=== PATIENT | female | born 1950 | race Caucasian/White ===

== ENCOUNTER 2018-04-03 01:17 | Emergency (ER) | payer MEDICARE ==
[2018-04-03] MEDS ORDERED: NEOMYCIN-BACITRACIN-POLYMYXIN 0.9 GM UD TOP ONE (01:20)
[2018-04-03] MEDS ORDERED: POVIDONE IODINE 10 % 15 ML UD TOP ONE (01:20)
[2018-04-03] MEDS ORDERED: LIDOCAINE 1% 10 ML VIAL INJ ONE (01:20)
[2018-04-03] MEDS ORDERED: CHLORHEXIDINE GLUCONATE 4 % 15 ML UD TOP ONE (01:21)
[2018-04-03] MEDS ORDERED: TETANUS,DIPHTHERIA,PERTUSSIS 1 EA SYG IM ONE (01:37)
--- NOTE | 2018-04-03 01:40 | ED.PDOC ---
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 NO LOC BUT NOW SUSTAINS A LAC TO THE FOREHEAD. THE LAC MEASURES 7 CM. Timing/Duration: just prior to arrival Severity: moderate Location: face Improving Factors: nothing Worsening Factors: nothing Associated Symptoms: denies symptoms Allergies/Adverse Reactions: Allergies Sulfa Antibiotics Allergy (Verified 04/03/18 01:34) Unknown Review of Systems - Review of Systems Constitutional: States: no symptoms reported EENTM: States: no symptoms reported Respiratory: States: no symptoms reported Cardiology: States: no symptoms reported Gastrointestinal/Abdominal: States: no symptoms reported Musculoskeletal: States: no symptoms reported Skin: States: other - LACERATION Neurological: States: tremors, other - SANJUANITA'S CHOREA Endocrine: States: no symptoms reported Hematologic/Lymphatic: States: no symptoms reported Past Medical History (General) - Patient Medical History Other Surgeries:: SANJUANITA'S CHOREA Family Medical History - Family History Mother Family History: Unknown Living Status: Physical Exam - Physical Exam General Appearance: Alert, Well Developed, Well Groomed, Well Hydrated, Well Nourished Eyes, Ears, Nose, Throat Exam: PERRL/EOMI, normal ENT inspection, TMs normal, pharynx normal Neck: non-tender Cardiovascular/Chest: normal peripheral pulses, regular rate, rhythm, no edema, no gallop Respiratory: chest non-tender, lungs clear, normal breath sounds, no respiratory distress, no accessory muscle use Gastrointestinal/Abdominal: normal bowel sounds, non tender, soft, no organomegaly Back Exam: normal inspection Neurologic: oriented x 3 Skin Exam: other - 7 CM LAC TO THE FORHEAD Progress - Progress Progress: 04/03/18 02:44 ct of the head and ct of the cervical spine: THERE WAS ARTIFACT AND MOVEMENT NOTED. PRELIMINARY REPORT NO OBVIOUS FRACTURE OF BLEED. Procedures - Laceration/Wound Repair Face Wound Length (cm): 7 Wound's Depth, Shape: into muscle, linear Wound Explored: no foreign body removed Irrigated w/ Saline (cc's): 100 Betadine Prep?: Yes Anesthesia: 1% Lidocaine Volume Anesthetic (cc's): 7 Wound Debrided: minimal Wound Repaired With: sutures Suture Size/Type: 5:0 Number of Sutures: 7 Layer Closure?: Yes Deep Layer Suture Size/Type: 4:0, vicryl Number Deep Layer Sutures: 3 Sterile Dressing Applied?: Yes Departure - Departure Clinical Impression: Closed head injury Qualifiers: Encounter type: initial encounter Qualified Code(s): S09.90XA - Unspecified injury of head, initial encounter Repetitive strain injury of cervical spine Qualifiers: Encounter type: initial encounter Qualified Code(s): S16.1XXA - Strain of muscle, fascia and tendon at neck level, initial encounter Facial laceration Qualifiers: Encounter type: initial encounter Qualified Code(s): S01.81XA - Laceration without foreign body of other part of head, initial encounter Time of Disposition: 02:47 Disposition: Discharge to Home or Self Care Condition: Good Departure Forms: ED Discharge - Pt. Copy, Patient Portal Self Enrollment Instructions: DI for Laceration Repair, How to Care for a Laceration After Repair Additional Instructions: SUTURE REMOVAL 7 DAYS
[2018-04-03 01:45] VITALS: TEMP 98
--- NOTE | 2018-04-03 02:42 | CT ---
CT head without contrast on 04/03/2018 CLINICAL INDICATION: Head injury, pain, history of Bartow's disease TECHNIQUE: Multiple axial images are obtained throughout the head without the administration of contrast. This exam was performed according to our departmental dose-optimization program, which includes automated exposure control, adjustment of the mA and/or kV according to patient size and/or use of iterative reconstruction technique. Total DLP is 859.97 mGy*cm. COMPARISON: None FINDINGS: Motion limits the examination. The patient is status post left frontal temporal craniotomy. There is generalized cerebral atrophy. Ventriculomegaly appears enlarged even for degree of atrophy suggesting hydrocephalus. Correlation with any old imaging would be useful. No definite CT evidence of acute infarct is noted. No hemorrhage is noted. There are no abnormal extra-axial fluid collections. There is no mass, mass effect or midline shift. No acute bony abnormality is noted. IMPRESSION: 1. Motion significantly limits the examination. 2. Atrophy with ventriculomegaly that appears greater than expected for the degree of atrophy suggesting hydrocephalus. If there is clinical concern for normal pressure hydrocephalus consider follow-up nuclear medicine cisternogram. Correlation with any old imaging would be useful. Electronically signed by: Michael Hallman 04/03/2018 2:39 AM [employer]
--- NOTE | 2018-04-03 02:45 | CT ---
CT cervical spine without contrast on 04/03/2018 CLINICAL INDICATION: Head injury, per protocol for mechanism of injury TECHNIQUE: Multiple axial images are obtained throughout the cervical spine without the administration of contrast. Sagittal and coronal reformatted images are also performed and reviewed. This exam was performed according to our departmental dose-optimization program, which includes automated exposure control, adjustment of the mA and/or kV according to patient size and/or use of iterative reconstruction technique. Total DLP is 277.57 mGy*cm. COMPARISON: None FINDINGS: Motion limits the examination, especially the reformatted images. Lateral funeral home manager view shows reversal of the normal cervical lordosis but otherwise normal alignment. Motion otherwise limits evaluation of alignment on the sagittal and coronal reformatted images. No acute fracture line is noted. There is apparent debris in the upper thoracic esophagus that may be from gastroesophageal reflux. No gross disc herniation is noted. There is no prevertebral soft tissue swelling. IMPRESSION: Motion limits the examination with no gross acute fracture or acute malalignment. Electronically signed by: Michael Hallman 04/03/2018 2:42 AM [facility]
[2018-04-03 03:37] VITALS: BP 133/78; O2SAT 93
== END 2018-04-03 02:55 | disposition home or self-care (01) ==
LOC: ER 01:17
DX: S01.81XA Laceration without foreign body of other part of head, initial encounter (principal); S09.90XA Unspecified injury of head, initial encounter; S16.1XXA Strain of muscle, fascia and tendon at neck level, initial encounter; G10 Huntington's disease; Z88.2 Allergy status to sulfonamides; W06.XXXA Fall from bed, initial encounter; Y92.9 Unspecified place or not applicable